=== PATIENT | male | born 1950 | race Caucasian/White ===

== ENCOUNTER 2024-10-10 14:43 | Emergency (ER) | payer MEDICARE, OTHER ==
[2024-10-10 14:46] VITALS: BP 161/78; PULSE 81
[2024-10-10 15:13] LABS: BASOPHILS ABSOLUTE AUTO 0.03 10^3/uL (0.00-0.50); BASOPHILS PERCENT AUTO 0.3 % (0-1); EOSINOPHILS ABSOLUTE AUTO 0.01 10^3/uL (0.00-1.50); EOSINOPHILS PERCENT AUTO 0.1 % (0-6); HEMATOCRIT 40.8 % (42.0-52.0); HEMOGLOBIN 12.5 g/dL (14.0-18.0); IMMATURE GRAN ABSOLUTE AUTO 0.07 10^3/uL (0.00-0.49); IMMATURE GRAN PERCENT AUTO 0.8 % (0.0-4.9); LYMPHOCYTES ABSOLUTE AUTO 0.52 10^3/uL (0.60-5.00); LYMPHOCYTES PERCENT AUTO 5.8 % (24-44); MEAN CORPUSCULAR HEMOGLOBIN 29.6 pg (27.0-32.0); MEAN CORPUSCULAR HGB CONC 30.6 g/dL (32.0-36.0); MEAN CORPUSCULAR VOLUME 96.5 fL (83.0-97.0); MONOCYTES ABSOLUTE AUTO 0.62 10^3/uL (0.00-1.50); NEUTROPHILS ABSOLUTE AUTO 7.65 x10^3/uL (1.80-8.00); PLATELET COUNT,PLT 242 10^3/uL (150-400); RED BLOOD CELL COUNT 4.23 x10^6/uL (4.50-6.00); WHITE BLOOD CELL COUNT,WBC 8.9 10^3/uL (4.0-11.0)
[2024-10-10 15:34] LABS: ALBUMIN 3.5 g/dL (3.4-5.0); BILIRUBIN TOTAL 0.6 mg/dL (0.0-1.0); C-REACTIVE PROTEIN 6.15 mg/dL (<=0.50); CALCIUM 9.7 mg/dL (8.4-10.1); CREATININE 1.1 mg/dL (0.7-1.3); EST CRCL DRUG DOSING (CG) 57.13 mL/min; MAGNESIUM 1.9 mg/dL (1.8-2.4); POTASSIUM,K 4.8 mEq/L (3.5-5.0); PROTEIN TOTAL,TP 7.4 g/dL (6.4-8.2)
[2024-10-10 16:29] LABS: INR 1.23 (0.92-1.18); PROTHROMBIN TIME 12.8 SEC (9.3-11.3); PTT,PARTIAL THROMBOPLSTIN TIME 26.1 SEC (20.0-30.0)
[2024-10-10] MEDS: Furosemide 40 MG/4 ML VIAL IVPUSH ONE (16:38)
[2024-10-10] MEDS: Heparin Sodium 5,000 Units/ML Vial IVPUSH ONE (17:12)
[2024-10-10] MEDS: Heparin Sodium/0.45% NaCl 25,000 UNITS/250 ML BAG IV SCH (17:19)
[2024-10-10] MEDS: LORazepam 2 MG/ML SDV IVPUSH ONE ×2 (17:30→17:33)
[2024-10-10] MEDS: Heparin Sodium 5,000 Units/ML Vial ONE (17:31)
== END 2024-10-10 17:33 ==
LOC: CC.ED 14:43
DX: I21.4 Non-ST elevation (NSTEMI) myocardial infarction (principal); I11.0 Hypertensive heart disease with heart failure; I50.9 Heart failure, unspecified; J44.9 Chronic obstructive pulmonary disease, unspecified; K21.9 Gastro-esophageal reflux disease without esophagitis; E78.00 Pure hypercholesterolemia, unspecified; E66.9 Obesity, unspecified; E11.9 Type 2 diabetes mellitus without complications; F17.200 Nicotine dependence, unspecified, uncomplicated; Z79.82 Long term (current) use of aspirin; Z79.84 Long term (current) use of oral hypoglycemic drugs; Z79.899 Other long term (current) drug therapy; Z68.27 Body mass index [BMI] 27.0-27.9, adult
CPT/HCPCS: 36415; 70450; 71045; 73630-RT; 80053; 83605; 83735; 83880; 84484; 85025; 85610; 85730; 86140; 87040; 93005; 96372; 96374; 96375; 99285-25; J1644; J1940; J2060

== ENCOUNTER 2024-10-27 20:50 | Inpatient (IN) | payer OTHER ==
[2024-10-27] MEDS ORDERED: Sodium Chloride 0.9% 10 ML Syringe FLUSH PRN (21:00)
[2024-10-27 21:24] LABS: BASOPHILS ABSOLUTE AUTO 0.04 10^3/uL (0.00-0.50); BASOPHILS PERCENT AUTO 0.4 % (0-1); EOSINOPHILS ABSOLUTE AUTO 0.16 10^3/uL (0.00-1.50); EOSINOPHILS PERCENT AUTO 1.5 % (0-6); HEMOGLOBIN 12.5 g/dL (14.0-18.0); IMMATURE GRAN ABSOLUTE AUTO 0.07 10^3/uL (0.00-0.49); IMMATURE GRAN PERCENT AUTO 0.7 % (0.0-4.9); LYMPHOCYTES ABSOLUTE AUTO 0.76 10^3/uL (0.60-5.00); LYMPHOCYTES PERCENT AUTO 7.1 % (24-44); MEAN CORPUSCULAR HEMOGLOBIN 30.1 pg (27.0-32.0); MEAN CORPUSCULAR HGB CONC 30.5 g/dL (32.0-36.0); MEAN CORPUSCULAR VOLUME 98.8 fL (83.0-97.0); MONOCYTES ABSOLUTE AUTO 0.96 10^3/uL (0.00-1.50); NEUTROPHILS PERCENT AUTO 81.3 % (41-71); PLATELET COUNT,PLT 201 10^3/uL (150-400); RED BLOOD CELL COUNT 4.15 x10^6/uL (4.50-6.00); WHITE BLOOD CELL COUNT,WBC 10.7 10^3/uL (4.0-11.0)
[2024-10-27 21:39] LABS: INR 1.05 (0.92-1.18); PROTHROMBIN TIME 10.9 SEC (9.3-11.3)
[2024-10-27 21:44] LABS: ALBUMIN 3.5 g/dL (3.4-5.0); BILIRUBIN TOTAL 0.4 mg/dL (0.0-1.0); C-REACTIVE PROTEIN 2.07 mg/dL (<=0.50); CALCIUM 9.5 mg/dL (8.4-10.1); CREATININE 0.7 mg/dL (0.7-1.3); EST CRCL DRUG DOSING (CG) 89.78 mL/min; MAGNESIUM 1.8 mg/dL (1.8-2.4); POTASSIUM,K 4.9 mEq/L (3.5-5.0); PROTEIN TOTAL,TP 7.2 g/dL (6.4-8.2)
[2024-10-27] MEDS: Morphine 2 MG/ML SYRINGE IVPUSH ONE (21:45)
[2024-10-27] MEDS: Albuterol/Ipratropium 3.0-0.5 MG/3 ML Neb Soln NEB ONE (21:56)
[2024-10-27] MEDS: methylPREDNISolone Sodium Succinate 125 MG/2 ML SDV IVPUSH STA (22:40)
[2024-10-27] MEDS ORDERED: Temazepam 15 MG Cap PO PRN (22:59)
[2024-10-27] MEDS: Apixaban 5 MG Tab PO SCH (23:37)
[2024-10-27] MEDS ORDERED: Ondansetron 4 MG/2 ML SDV IV PRN (23:38)
[2024-10-27] MEDS ORDERED: Albuterol 0.083% 2.5 MG/3 ML Neb Soln NEB PRN (23:38)
[2024-10-27] MEDS ORDERED: Ondansetron 4 MG Tab.DIS PO PRN (23:38)
[2024-10-28] MEDS: Levofloxacin/Dextrose 5%-Water 750 MG in Premix Bag 1 BAG IV SCH (00:42)
[2024-10-28] MEDS: LORazepam 2 MG/ML SDV IVPUSH ONE (00:44)
[2024-10-28] MEDS: Acetaminophen 325 MG Tab PO PRN (03:59)
[2024-10-28] MEDS ORDERED: LORazepam 2 MG/ML SDV IVPUSH PRN (04:59)
[2024-10-28] MEDS: LORazepam 0.5 MG Tab PO PRN (05:32)
[2024-10-28] MEDS: Pantoprazole 40 MG Tab.CR PO SCH (06:26)
[2024-10-28] MEDS ORDERED: Apixaban 5 MG Tab PO SCH (08:00)
[2024-10-28 08:29] LABS: BASOPHILS ABSOLUTE AUTO 0.01 10^3/uL (0.00-0.50); BASOPHILS PERCENT AUTO 0.1 % (0-1); HEMATOCRIT 40.9 % (42.0-52.0); HEMOGLOBIN 12.6 g/dL (14.0-18.0); IMMATURE GRAN ABSOLUTE AUTO 0.03 10^3/uL (0.00-0.49); IMMATURE GRAN PERCENT AUTO 0.4 % (0.0-4.9); LYMPHOCYTES ABSOLUTE AUTO 0.21 10^3/uL (0.60-5.00); MEAN CORPUSCULAR HEMOGLOBIN 29.5 pg (27.0-32.0); MEAN CORPUSCULAR HGB CONC 30.8 g/dL (32.0-36.0); MEAN CORPUSCULAR VOLUME 95.8 fL (83.0-97.0); MONOCYTES ABSOLUTE AUTO 0.04 10^3/uL (0.00-1.50); MONOCYTES PERCENT AUTO 0.6 % (0-10); NEUTROPHILS ABSOLUTE AUTO 6.62 x10^3/uL (1.80-8.00); NEUTROPHILS PERCENT AUTO 95.9 % (41-71); PLATELET COUNT,PLT 203 10^3/uL (150-400); RED BLOOD CELL COUNT 4.27 x10^6/uL (4.50-6.00); WHITE BLOOD CELL COUNT,WBC 6.9 10^3/uL (4.0-11.0)
[2024-10-28] MEDS: Metoprolol Succinate 100 MG Tab.ER PO SCH (08:32)
[2024-10-28] MEDS: Ezetimibe 10 MG Tab PO SCH (08:33)
[2024-10-28] MEDS: Losartan 25 MG Tab PO SCH (08:33)
[2024-10-28] MEDS: Aspirin 81 MG Tab.EC PO SCH (08:34)
[2024-10-28] MEDS: Atenolol 50 MG Tab PO SCH (08:34)
[2024-10-28] MEDS: Gabapentin 300 MG Cap PO SCH ×2 (08:34→19:19)
[2024-10-28] MEDS: Beta-Carotene (Vitamin A) w/Vitamin C & E plus Minerals Tab PO SCH (08:34)
[2024-10-28] MEDS: metFORMIN 500 MG Tab PO SCH (08:34)
[2024-10-28] MEDS: Clopidogrel 75 MG Tab PO SCH (08:34)
[2024-10-28] MEDS: Empagliflozin 25 MG Tab PO SCH (08:34)
[2024-10-28] MEDS: Isosorbide Mononitrate 30 MG Tab.ER PO SCH (08:34)
[2024-10-28] MEDS: Vitamin B Complex Cap PO SCH (08:34)
[2024-10-28] MEDS: Furosemide 40 MG Tab PO SCH (08:35)
[2024-10-28] MEDS: Lisinopril 5 MG Tab PO SCH (08:35)
[2024-10-28] MEDS: Nicotine 21 MG/24 Hr Patch TRDERM SCH (08:38)
[2024-10-28] MEDS: methylPREDNISolone Sodium Succinate 125 MG/2 ML SDV IVPUSH SCH (08:38)
[2024-10-28] MEDS: Tiotropium Bromide 4 GM Inhalation Spray (2.5mcg/1 dose; 10 doses) INH SCH (08:39)
[2024-10-28] MEDS: Albuterol/Ipratropium 3.0-0.5 MG/3 ML Neb Soln NEB SCH (08:39)
[2024-10-28] MEDS: Formoterol/Mometasone 200-5 MCG 8.8 GM Inhaler IH SCH (08:39)
[2024-10-28 08:46] LABS: ALBUMIN 3.5 g/dL (3.4-5.0); BILIRUBIN TOTAL 0.5 mg/dL (0.0-1.0); C-REACTIVE PROTEIN 1.82 mg/dL (<=0.50); CALCIUM 9.5 mg/dL (8.4-10.1); CREATININE 0.8 mg/dL (0.7-1.3); EST CRCL DRUG DOSING (CG) 78.56 mL/min; POTASSIUM,K 4.6 mEq/L (3.5-5.0); PROTEIN TOTAL,TP 7.3 g/dL (6.4-8.2)
[2024-10-28] MEDS: Morphine 2 MG/ML SYRINGE IVPUSH PRN (11:56)
[2024-10-28] MEDS: ALOGLIPTIN 25 MG PO SCH (11:57)
[2024-10-28] MEDS: Temazepam 15 MG Cap PO SCH (19:19)
[2024-10-29] MEDS: Sodium Chloride 0.9% 500 ML IV SCH ×2 (04:10→16:32)
[2024-10-29 06:37] LABS: APPEARANCE,URINE CLEAR (CLEAR); BILIRUBIN,URINE NEGATIVE (NEGATIVE); COLOR,URINE YELLOW (YELLOW); GLUCOSE,URINE 500 mg/dL (NEGATIVE); KETONES,URINE TRACE mg/dL (NEGATIVE); LEUKOCYTE ESTERASE,URINE NEGATIVE (NEGATIVE); NITRITE,URINE NEGATIVE (NEGATIVE); OCCULT BLOOD,URINE NEGATIVE (NEGATIVE); PH,URINE 5.5 (4.5-8.0); PROTEIN,URINE NEGATIVE (NEGATIVE); UROBILINOGEN,URINE 0.2 EU/dL (0.2-1.0)
[2024-10-29 08:00] LABS: BASOPHILS ABSOLUTE AUTO 0.01 10^3/uL (0.00-0.50); BASOPHILS PERCENT AUTO 0.1 % (0-1); EOSINOPHILS ABSOLUTE AUTO 0.01 10^3/uL (0.00-1.50); EOSINOPHILS PERCENT AUTO 0.1 % (0-6); HEMATOCRIT 35.9 % (42.0-52.0); HEMOGLOBIN 11.2 g/dL (14.0-18.0); IMMATURE GRAN ABSOLUTE AUTO 0.05 10^3/uL (0.00-0.49); IMMATURE GRAN PERCENT AUTO 0.5 % (0.0-4.9); LYMPHOCYTES ABSOLUTE AUTO 0.92 10^3/uL (0.60-5.00); MEAN CORPUSCULAR HEMOGLOBIN 30.1 pg (27.0-32.0); MEAN CORPUSCULAR HGB CONC 31.2 g/dL (32.0-36.0); MEAN CORPUSCULAR VOLUME 96.5 fL (83.0-97.0); MONOCYTES ABSOLUTE AUTO 1.25 10^3/uL (0.00-1.50); MONOCYTES PERCENT AUTO 12.2 % (0-10); NEUTROPHILS ABSOLUTE AUTO 7.99 x10^3/uL (1.80-8.00); NEUTROPHILS PERCENT AUTO 78.1 % (41-71); PLATELET COUNT,PLT 220 10^3/uL (150-400); RED BLOOD CELL COUNT 3.72 x10^6/uL (4.50-6.00); WHITE BLOOD CELL COUNT,WBC 10.2 10^3/uL (4.0-11.0)
[2024-10-29 08:17] LABS: BILIRUBIN TOTAL 0.3 mg/dL (0.0-1.0); C-REACTIVE PROTEIN 0.89 mg/dL (<=0.50); CALCIUM 8.6 mg/dL (8.4-10.1); EST CRCL DRUG DOSING (CG) 31.42 mL/min; POTASSIUM,K 3.8 mEq/L (3.5-5.0); PROTEIN TOTAL,TP 6.3 g/dL (6.4-8.2)
[2024-10-29] MEDS: Saxagliptin 2.5 MG Tab PO SCH (09:10)
[2024-10-29] MEDS: DULoxetine 20 MG Cap PO SCH (19:26)
[2024-10-29] MEDS: Budesonide 0.5 MG/2 ML Neb Susp NEB SCH (19:26)
[2024-10-29] MEDS: Rosuvastatin 10 MG Tab PO SCH (19:27)
[2024-10-30 08:09] LABS: BASOPHILS ABSOLUTE AUTO 0.01 10^3/uL (0.00-0.50); BASOPHILS PERCENT AUTO 0.1 % (0-1); EOSINOPHILS ABSOLUTE AUTO 0.02 10^3/uL (0.00-1.50); EOSINOPHILS PERCENT AUTO 0.2 % (0-6); HEMATOCRIT 36.6 % (42.0-52.0); HEMOGLOBIN 11.2 g/dL (14.0-18.0); IMMATURE GRAN ABSOLUTE AUTO 0.02 10^3/uL (0.00-0.49); IMMATURE GRAN PERCENT AUTO 0.2 % (0.0-4.9); LYMPHOCYTES ABSOLUTE AUTO 1.13 10^3/uL (0.60-5.00); LYMPHOCYTES PERCENT AUTO 11.9 % (24-44); MEAN CORPUSCULAR HEMOGLOBIN 29.9 pg (27.0-32.0); MEAN CORPUSCULAR HGB CONC 30.6 g/dL (32.0-36.0); MEAN CORPUSCULAR VOLUME 97.6 fL (83.0-97.0); MONOCYTES PERCENT AUTO 10.6 % (0-10); NEUTROPHILS ABSOLUTE AUTO 7.28 x10^3/uL (1.80-8.00); PLATELET COUNT,PLT 206 10^3/uL (150-400); RED BLOOD CELL COUNT 3.75 x10^6/uL (4.50-6.00); WHITE BLOOD CELL COUNT,WBC 9.5 10^3/uL (4.0-11.0)
[2024-10-30] MEDS: Metoprolol Succinate 100 MG Tab.ER PO SCH (08:13)
[2024-10-30] MEDS: Potassium Chloride 20 MEQ Tab.ER PO SCH (08:13)
[2024-10-30 08:25] LABS: ALANINE AMINOTRANSFERASE,ALT 11 U/L (12-78); ALBUMIN 2.9 g/dL (3.4-5.0); ALKALINE PHOSPHATASE 48 U/L (46-116); ASPARTATE AMNIOTRANSFERASE,AST 10 U/L (15-37); BILIRUBIN TOTAL 0.2 mg/dL (0.0-1.0); BLOOD UREA NITROGEN,BUN 47 mg/dL (7-18); CALCIUM 9.2 mg/dL (8.4-10.1); CHLORIDE,CL 101 mEq/L (98-106); CREATININE 1.5 mg/dL (0.7-1.3); GLUCOSE RANDOM 140 mg/dL (75-99); POTASSIUM,K 5.1 mEq/L (3.5-5.0); PROTEIN TOTAL,TP 6.1 g/dL (6.4-8.2); SODIUM,NA 145 mEq/L (136-145)
[2024-10-30] MEDS: Tiotropium Bromide 4 GM Inhalation Spray (2.5mcg/1 dose; 10 doses) INH SCH (08:25)
[2024-10-30 08:53] LABS: C-REACTIVE PROTEIN < 0.50 mg/dL (<=0.50); CARBON DIOXIDE,CO2 44 mmol/L (21-32); ESTIMATED GFR 48 mL/min (>=60)
[2024-10-30 13:16] VITALS: PULSE 73
[2024-10-30] MEDS: Levofloxacin/Dextrose 5%-Water 750 MG in Premix Bag 1 BAG IV SCH (13:19)
[2024-10-30] MEDS: Gabapentin 300 MG Cap PO ONE (15:11)
[2024-10-30 15:40] VITALS: BP 116/45
[2024-10-30] MEDS ORDERED: metFORMIN 500 MG Tab PO SCH (17:30)
[2024-10-30] MEDS ORDERED: Levofloxacin/Dextrose 5%-Water 750 MG in Premix Bag 1 BAG IV SCH (20:00)
== END 2024-10-30 15:30 | disposition home health service (06) | DRG 193 ==
LOC: CC.ED 20:50 → CC.MS 22:45
PROVIDERS: ADMIT Nurse Practitioner Family; ATTEND Nurse Practitioner Family
DX: J18.9 Pneumonia, unspecified organism (principal); I21.4 Non-ST elevation (NSTEMI) myocardial infarction; R41.0 Disorientation, unspecified; J44.1 Chronic obstructive pulmonary disease with (acute) exacerbation; N17.9 Acute kidney failure, unspecified; J44.0 Chronic obstructive pulmonary disease with (acute) lower respiratory infection; Z66 Do not resuscitate; I50.9 Heart failure, unspecified; E11.42 Type 2 diabetes mellitus with diabetic polyneuropathy; H91.90 Unspecified hearing loss, unspecified ear; H54.7 Unspecified visual loss; E78.00 Pure hypercholesterolemia, unspecified; I11.0 Hypertensive heart disease with heart failure; K21.9 Gastro-esophageal reflux disease without esophagitis; E11.40 Type 2 diabetes mellitus with diabetic neuropathy, unspecified; E66.9 Obesity, unspecified; I95.9 Hypotension, unspecified; Z95.5 Presence of coronary angioplasty implant and graft; Z79.01 Long term (current) use of anticoagulants; Z79.02 Long term (current) use of antithrombotics/antiplatelets; Z79.899 Other long term (current) drug therapy; Z79.51 Long term (current) use of inhaled steroids; Z79.84 Long term (current) use of oral hypoglycemic drugs; Z79.52 Long term (current) use of systemic steroids; Z79.82 Long term (current) use of aspirin; I25.2 Old myocardial infarction; Z68.26 Body mass index [BMI] 26.0-26.9, adult
CPT/HCPCS: 36415; 71045; 80053; 81003; 83690; 83735; 83880; 84132; 84484; 85025; 85610; 85730; 86140; 93005; 93010; 94640; 96374; 97110-GP; 97161-GP; 99223; 99232; 99233; 99239; 99285-25; A9270-GY; J1956; J2060; J2270; J2919; J3490; J7040

== ENCOUNTER 2024-11-12 12:40 | Emergency (ER) | payer OTHER ==
[2024-11-12 13:09] LABS: BASOPHILS ABSOLUTE AUTO 0.05 10^3/uL (0.00-0.50); BASOPHILS PERCENT AUTO 0.4 % (0-1); EOSINOPHILS ABSOLUTE AUTO 0.16 10^3/uL (0.00-1.50); EOSINOPHILS PERCENT AUTO 1.1 % (0-6); HEMATOCRIT 38.6 % (42.0-52.0); HEMOGLOBIN 11.8 g/dL (14.0-18.0); IMMATURE GRAN ABSOLUTE AUTO 0.05 10^3/uL (0.00-0.49); IMMATURE GRAN PERCENT AUTO 0.4 % (0.0-4.9); LYMPHOCYTES ABSOLUTE AUTO 1.15 10^3/uL (0.60-5.00); LYMPHOCYTES PERCENT AUTO 8.2 % (24-44); MEAN CORPUSCULAR HEMOGLOBIN 29.4 pg (27.0-32.0); MEAN CORPUSCULAR HGB CONC 30.6 g/dL (32.0-36.0); MEAN CORPUSCULAR VOLUME 96.3 fL (83.0-97.0); MONOCYTES ABSOLUTE AUTO 0.99 10^3/uL (0.00-1.50); MONOCYTES PERCENT AUTO 7.1 % (0-10); NEUTROPHILS ABSOLUTE AUTO 11.61 x10^3/uL (1.80-8.00); NEUTROPHILS PERCENT AUTO 82.8 % (41-71); PLATELET COUNT,PLT 235 10^3/uL (150-400); RED BLOOD CELL COUNT 4.01 x10^6/uL (4.50-6.00)
[2024-11-12 13:25] LABS: LACTIC ACID 3.9 mmol/L (0.4-2.0)
[2024-11-12 13:30] LABS: ALANINE AMINOTRANSFERASE,ALT 17 U/L (12-78); ALBUMIN 3.7 g/dL (3.4-5.0); ALKALINE PHOSPHATASE 58 U/L (46-116); ASPARTATE AMNIOTRANSFERASE,AST 13 U/L (15-37); BILIRUBIN TOTAL 0.5 mg/dL (0.0-1.0); BLOOD UREA NITROGEN,BUN 24 mg/dL (7-18); CALCIUM 9.5 mg/dL (8.4-10.1); CHLORIDE,CL 96 mEq/L (98-106); CREATININE 1.2 mg/dL (0.7-1.3); GLUCOSE RANDOM 171 mg/dL (75-99); POTASSIUM,K 4.7 mEq/L (3.5-5.0); PRO B-TYPE NATRIUR PEPT,BNPPRO 3893 pg/mL (0-1000); PROTEIN TOTAL,TP 6.7 g/dL (6.4-8.2); SODIUM,NA 145 mEq/L (136-145)
[2024-11-12 13:32] LABS: APPEARANCE,URINE CLEAR (CLEAR); BILIRUBIN,URINE NEGATIVE (NEGATIVE); COLOR,URINE YELLOW (YELLOW); GLUCOSE,URINE 500 mg/dL (NEGATIVE); KETONES,URINE NEGATIVE (NEGATIVE); LEUKOCYTE ESTERASE,URINE NEGATIVE (NEGATIVE); NITRITE,URINE NEGATIVE (NEGATIVE); OCCULT BLOOD,URINE NEGATIVE (NEGATIVE); PROTEIN,URINE NEGATIVE (NEGATIVE); UROBILINOGEN,URINE 0.2 EU/dL (0.2-1.0)
[2024-11-12 13:37] LABS: CARBON DIOXIDE,CO2 47 mmol/L (21-32); ESTIMATED GFR 63 mL/min (>=60)
[2024-11-12 13:38] LABS: C-REACTIVE PROTEIN < 0.50 mg/dL (<=0.50)
[2024-11-12] MEDS: Sodium Chloride 0.9% 500 ML IV SCH (13:42)
[2024-11-12 14:09] VITALS: BP 81/46; PULSE 78
[2024-11-12] MEDS: Heparin Sodium 5,000 Units/ML Vial IVPUSH ONE (15:56)
[2024-11-12] MEDS: Heparin Sodium/0.45% NaCl 25,000 UNITS/250 ML BAG IV SCH (15:58)
== END 2024-11-12 18:49 ==
LOC: CC.ED 12:40
DX: I21.4 Non-ST elevation (NSTEMI) myocardial infarction (principal); I95.9 Hypotension, unspecified; R55 Syncope and collapse; I11.0 Hypertensive heart disease with heart failure; I50.9 Heart failure, unspecified; I25.2 Old myocardial infarction; E11.40 Type 2 diabetes mellitus with diabetic neuropathy, unspecified; E66.9 Obesity, unspecified; E78.00 Pure hypercholesterolemia, unspecified; J44.9 Chronic obstructive pulmonary disease, unspecified; K21.9 Gastro-esophageal reflux disease without esophagitis; Z79.82 Long term (current) use of aspirin; Z79.899 Other long term (current) drug therapy; Z79.84 Long term (current) use of oral hypoglycemic drugs; Z79.01 Long term (current) use of anticoagulants
CPT/HCPCS: 36415; 70450; 71045; 80053; 81003; 83605; 83880; 84484; 85025; 85730; 86140; 93005; 93010; 96361; 96365; 96366; 96376; 99284; 99285-25; J1644; J7040

== ENCOUNTER 2024-12-08 07:20 | Emergency (ER) | payer OTHER ==
[2024-12-08] MEDS ORDERED: Morphine 2 MG/ML SYRINGE IVPUSH STA (07:30)
[2024-12-08 07:34] LABS: BASOPHILS ABSOLUTE AUTO 0.03 10^3/uL (0.00-0.50); BASOPHILS PERCENT AUTO 0.3 % (0-1); EOSINOPHILS ABSOLUTE AUTO 0.18 10^3/uL (0.00-1.50); EOSINOPHILS PERCENT AUTO 2.1 % (0-6); HEMATOCRIT 36.4 % (42.0-52.0); HEMOGLOBIN 10.8 g/dL (14.0-18.0); IMMATURE GRAN ABSOLUTE AUTO 0.05 10^3/uL (0.00-0.49); IMMATURE GRAN PERCENT AUTO 0.6 % (0.0-4.9); LYMPHOCYTES ABSOLUTE AUTO 0.55 10^3/uL (0.60-5.00); LYMPHOCYTES PERCENT AUTO 6.3 % (24-44); MEAN CORPUSCULAR HEMOGLOBIN 29.4 pg (27.0-32.0); MEAN CORPUSCULAR HGB CONC 29.7 g/dL (32.0-36.0); MEAN CORPUSCULAR VOLUME 99.2 fL (83.0-97.0); MONOCYTES ABSOLUTE AUTO 1.11 10^3/uL (0.00-1.50); MONOCYTES PERCENT AUTO 12.7 % (0-10); NEUTROPHILS ABSOLUTE AUTO 6.83 x10^3/uL (1.80-8.00); PLATELET COUNT,PLT 159 10^3/uL (150-400); RED BLOOD CELL COUNT 3.67 x10^6/uL (4.50-6.00); WHITE BLOOD CELL COUNT,WBC 8.8 10^3/uL (4.0-11.0)
[2024-12-08 07:37] VITALS: PULSE 94
[2024-12-08 07:50] LABS: ALBUMIN 3.4 g/dL (3.4-5.0); BILIRUBIN TOTAL 0.4 mg/dL (0.0-1.0); C-REACTIVE PROTEIN 3.35 mg/dL (<=0.50); CALCIUM 9.1 mg/dL (8.4-10.1); CREATININE 0.8 mg/dL (0.7-1.3); EST CRCL DRUG DOSING (CG) 78.56 mL/min; MAGNESIUM 1.6 mg/dL (1.8-2.4); PROTEIN TOTAL,TP 6.4 g/dL (6.4-8.2)
[2024-12-08] MEDS: methylPREDNISolone Sodium Succinate 125 MG/2 ML SDV IVPUSH STA (08:43)
[2024-12-08 11:36] VITALS: BP 136/47
== END 2024-12-08 11:05 | disposition home or self-care (01) ==
LOC: CC.ED 07:20
DX: J98.4 Other disorders of lung (principal); E78.00 Pure hypercholesterolemia, unspecified; I11.0 Hypertensive heart disease with heart failure; I50.9 Heart failure, unspecified; K21.9 Gastro-esophageal reflux disease without esophagitis; E11.9 Type 2 diabetes mellitus without complications; E66.9 Obesity, unspecified; Z79.899 Other long term (current) drug therapy; Z79.82 Long term (current) use of aspirin; Z68.26 Body mass index [BMI] 26.0-26.9, adult
CPT/HCPCS: 36415; 70450; 71045; 80053; 83690; 83735; 84484; 85025; 86140; 93005; 93010; 96374; 99284; 99285-25; J2919

== ENCOUNTER 2024-12-20 16:28 | Emergency (ER) | payer OTHER ==
[2024-12-20 16:54] LABS: BASOPHILS ABSOLUTE AUTO 0.04 10^3/uL (0.00-0.50); BASOPHILS PERCENT AUTO 0.3 % (0-1); EOSINOPHILS PERCENT AUTO 0.8 % (0-6); HEMATOCRIT 35.3 % (42.0-52.0); HEMOGLOBIN 10.7 g/dL (14.0-18.0); IMMATURE GRAN ABSOLUTE AUTO 0.11 10^3/uL (0.00-0.49); IMMATURE GRAN PERCENT AUTO 0.9 % (0.0-4.9); LYMPHOCYTES ABSOLUTE AUTO 0.68 10^3/uL (0.60-5.00); LYMPHOCYTES PERCENT AUTO 5.6 % (24-44); MEAN CORPUSCULAR HEMOGLOBIN 29.7 pg (27.0-32.0); MEAN CORPUSCULAR HGB CONC 30.3 g/dL (32.0-36.0); MEAN CORPUSCULAR VOLUME 98.1 fL (83.0-97.0); MONOCYTES ABSOLUTE AUTO 1.25 10^3/uL (0.00-1.50); MONOCYTES PERCENT AUTO 10.2 % (0-10); NEUTROPHILS ABSOLUTE AUTO 10.02 x10^3/uL (1.80-8.00); NEUTROPHILS PERCENT AUTO 82.2 % (41-71); PLATELET COUNT,PLT 175 10^3/uL (150-400); WHITE BLOOD CELL COUNT,WBC 12.2 10^3/uL (4.0-11.0)
[2024-12-20 17:13] LABS: ALANINE AMINOTRANSFERASE,ALT 13 U/L (12-78); ALBUMIN 3.4 g/dL (3.4-5.0); ALKALINE PHOSPHATASE 48 U/L (46-116); ASPARTATE AMNIOTRANSFERASE,AST 12 U/L (15-37); BILIRUBIN TOTAL 0.4 mg/dL (0.0-1.0); BLOOD UREA NITROGEN,BUN 13 mg/dL (7-18); C-REACTIVE PROTEIN 1.65 mg/dL (<=0.50); CALCIUM 9.2 mg/dL (8.4-10.1); CHLORIDE,CL 103 mEq/L (98-106); CREATININE 0.9 mg/dL (0.7-1.3); GLUCOSE RANDOM 119 mg/dL (75-99); POTASSIUM,K 3.7 mEq/L (3.5-5.0); PRO B-TYPE NATRIUR PEPT,BNPPRO 1699 pg/mL (0-1000); PROTEIN TOTAL,TP 6.3 g/dL (6.4-8.2); SODIUM,NA 149 mEq/L (136-145)
[2024-12-20 17:17] LABS: CARBON DIOXIDE,CO2 49 mmol/L (21-32); ESTIMATED GFR 89 mL/min (>=60)
[2024-12-20 21:48] VITALS: BP 107/60; PULSE 78
== END 2024-12-20 23:27 | disposition home or self-care (01) ==
LOC: CC.ED 16:28
DX: S82.65XA Nondisplaced fracture of lateral malleolus of left fibula, initial encounter for closed fracture (principal); F41.9 Anxiety disorder, unspecified; R79.89 Other specified abnormal findings of blood chemistry; I11.0 Hypertensive heart disease with heart failure; I50.9 Heart failure, unspecified; I25.2 Old myocardial infarction; E11.9 Type 2 diabetes mellitus without complications; E66.9 Obesity, unspecified; J44.9 Chronic obstructive pulmonary disease, unspecified; K21.9 Gastro-esophageal reflux disease without esophagitis; E78.00 Pure hypercholesterolemia, unspecified; F17.200 Nicotine dependence, unspecified, uncomplicated; Z79.82 Long term (current) use of aspirin; Z79.01 Long term (current) use of anticoagulants; Z79.899 Other long term (current) drug therapy; Z79.84 Long term (current) use of oral hypoglycemic drugs; Z79.02 Long term (current) use of antithrombotics/antiplatelets; W18.30XA Fall on same level, unspecified, initial encounter
CPT/HCPCS: 36415; 71046; 73562-LT; 73590-LT; 80053; 83880; 84484; 85025; 86140; 93005; 93010; 99284

== ENCOUNTER 2024-12-28 13:47 | Emergency (ER) | payer OTHER ==
[2024-12-28 14:17] LABS: BASOPHILS ABSOLUTE AUTO 0.06 10^3/uL (0.00-0.50); BASOPHILS PERCENT AUTO 0.8 % (0-1); EOSINOPHILS ABSOLUTE AUTO 0.08 10^3/uL (0.00-1.50); HEMATOCRIT 30.3 % (42.0-52.0); HEMOGLOBIN 9.2 g/dL (14.0-18.0); IMMATURE GRAN PERCENT AUTO 1.3 % (0.0-4.9); LYMPHOCYTES ABSOLUTE AUTO 0.44 10^3/uL (0.60-5.00); LYMPHOCYTES PERCENT AUTO 5.8 % (24-44); MEAN CORPUSCULAR HEMOGLOBIN 30.3 pg (27.0-32.0); MEAN CORPUSCULAR HGB CONC 30.4 g/dL (32.0-36.0); MEAN CORPUSCULAR VOLUME 99.7 fL (83.0-97.0); MONOCYTES ABSOLUTE AUTO 0.73 10^3/uL (0.00-1.50); MONOCYTES PERCENT AUTO 9.6 % (0-10); NEUTROPHILS ABSOLUTE AUTO 6.22 x10^3/uL (1.80-8.00); NEUTROPHILS PERCENT AUTO 81.5 % (41-71); PLATELET COUNT,PLT 165 10^3/uL (150-400); RED BLOOD CELL COUNT 3.04 x10^6/uL (4.50-6.00); WHITE BLOOD CELL COUNT,WBC 7.6 10^3/uL (4.0-11.0)
[2024-12-28 14:24] LABS: APPEARANCE,URINE CLEAR (CLEAR); BILIRUBIN,URINE NEGATIVE (NEGATIVE); COLOR,URINE YELLOW (YELLOW); GLUCOSE,URINE 500 mg/dL (NEGATIVE); KETONES,URINE NEGATIVE (NEGATIVE); LEUKOCYTE ESTERASE,URINE NEGATIVE (NEGATIVE); NITRITE,URINE NEGATIVE (NEGATIVE); OCCULT BLOOD,URINE TRACE-INTACT (NEGATIVE); PROTEIN,URINE NEGATIVE (NEGATIVE); UROBILINOGEN,URINE 0.2 EU/dL (0.2-1.0)
[2024-12-28 14:30] LABS: BACTERIA,URINE NOT SEEN /HPF (NOT SEEN); EPITHELIAL CELLS,URINE RARE /HPF (NOT SEEN); RBC,URINE 0-5 /HPF (0-5); WBC,URINE NOT SEEN /HPF (0-5)
[2024-12-28 14:31] LABS: MUCUS,URINE NOT SEEN /HPF (NOT SEEN)
[2024-12-28 14:32] LABS: BILIRUBIN TOTAL 0.4 mg/dL (0.0-1.0); C-REACTIVE PROTEIN 1.84 mg/dL (<=0.50); CALCIUM 9.4 mg/dL (8.4-10.1); CREATININE 0.9 mg/dL (0.7-1.3); EST CRCL DRUG DOSING (CG) 69.83 mL/min; POTASSIUM,K 3.1 mEq/L (3.5-5.0); PROTEIN TOTAL,TP 6.4 g/dL (6.4-8.2)
[2024-12-28] MEDS: Potassium Chloride 20 MEQ Tab.ER PO ONE (15:03)
[2024-12-28] MEDS: Albuterol/Ipratropium 3.0-0.5 MG/3 ML Neb Soln NEB ONE (15:20)
[2024-12-28 15:38] LABS: O2 DELIVERY DEVICE NASAL CANNULA
[2024-12-28 15:41] LABS: BASE EXCESS VENOUS 27.4; BICARBONATE,VENOUS 56.5; O2 SATURATION VENOUS 33.4; PCO2 VENOUS 85.4; PH,VENOUS 7.43 (7.36-7.41)
[2024-12-28 15:42] LABS: PO2 VENOUS 21.9
[2024-12-28] MEDS: Furosemide 40 MG/4 ML VIAL IVPUSH ONE (15:46)
[2024-12-28 17:03] VITALS: BP 107/47; PULSE 85
== END 2024-12-28 17:45 ==
LOC: CC.ED 13:47
DX: J44.1 Chronic obstructive pulmonary disease with (acute) exacerbation (principal); D53.9 Nutritional anemia, unspecified; R06.89 Other abnormalities of breathing; R41.0 Disorientation, unspecified; I11.0 Hypertensive heart disease with heart failure; I50.9 Heart failure, unspecified; I25.2 Old myocardial infarction; E78.00 Pure hypercholesterolemia, unspecified; J44.9 Chronic obstructive pulmonary disease, unspecified; K21.9 Gastro-esophageal reflux disease without esophagitis; E11.9 Type 2 diabetes mellitus without complications; Z79.899 Other long term (current) drug therapy; Z79.01 Long term (current) use of anticoagulants; Z79.51 Long term (current) use of inhaled steroids
CPT/HCPCS: 36415; 71046; 80053; 81001; 82803; 83735; 83880; 84484; 85025; 86140; 93005; 94640; 96374; 99285-25; A9270-GY; J1938

== ENCOUNTER 2025-04-16 20:47 | Observation (INO) | payer OTHER ==
[2025-04-16 21:04] LABS: BASOPHILS ABSOLUTE AUTO 0.01 10^3/uL (0.00-0.50); BASOPHILS PERCENT AUTO 0.1 % (0-1); EOSINOPHILS ABSOLUTE AUTO 0.03 10^3/uL (0.00-1.50); EOSINOPHILS PERCENT AUTO 0.3 % (0-6); IMMATURE GRAN ABSOLUTE AUTO 0.05 10^3/uL (0.00-0.49); IMMATURE GRAN PERCENT AUTO 0.5 % (0.0-4.9); LYMPHOCYTES ABSOLUTE AUTO 1.74 10^3/uL (0.60-5.00); LYMPHOCYTES PERCENT AUTO 17.3 % (24-44); MONOCYTES ABSOLUTE AUTO 0.96 10^3/uL (0.00-1.50); MONOCYTES PERCENT AUTO 9.5 % (0-10); NEUTROPHILS ABSOLUTE AUTO 7.29 x10^3/uL (1.80-8.00); NEUTROPHILS PERCENT AUTO 72.3 % (41-71); PLATELET COUNT,PLT 283 10^3/uL (150-400); RED BLOOD CELL COUNT 3.64 x10^6/uL (4.50-6.00); WHITE BLOOD CELL COUNT,WBC 10.1 10^3/uL (4.0-11.0)
[2025-04-16 21:25] LABS: ALANINE AMINOTRANSFERASE,ALT 18 U/L (12-78); ASPARTATE AMNIOTRANSFERASE,AST 13 U/L (15-37); BILIRUBIN TOTAL 0.4 mg/dL (0.0-1.0); BLOOD UREA NITROGEN,BUN 30 mg/dL (7-18); CARBON DIOXIDE,CO2 37 mmol/L (21-32); CHLORIDE,CL 100 mEq/L (98-106); CREATININE 1.0 mg/dL (0.7-1.3); EST CRCL DRUG DOSING (CG) 62.84 mL/min; GLUCOSE RANDOM 165 mg/dL (75-99); POTASSIUM,K 4.8 mEq/L (3.5-5.0); PRO B-TYPE NATRIUR PEPT,BNPPRO 404 pg/mL (0-1000); PROTEIN TOTAL,TP 6.0 g/dL (6.4-8.2); SODIUM,NA 142 mEq/L (136-145)
[2025-04-16 21:29] LABS: ESTIMATED GFR 78 mL/min (>=60)
[2025-04-16 21:35] LABS: INR 1.09 (0.92-1.18); PTT,PARTIAL THROMBOPLSTIN TIME 23.3 SEC (20.0-30.0)
[2025-04-17] MEDS ORDERED: Nitroglycerin 0.4 MG Tab.SL SL PRN (01:03)
[2025-04-17] MEDS ORDERED: Sodium Chloride 0.9% 10 ML Syringe FLUSH PRN (01:03)
[2025-04-17] MEDS ORDERED: Ondansetron 4 MG Tab.DIS PO PRN (01:03)
[2025-04-17] MEDS ORDERED: Ondansetron 4 MG/2 ML SDV IV PRN (01:03)
[2025-04-17 07:55] LABS: BASOPHILS ABSOLUTE AUTO 0.01 10^3/uL (0.00-0.50); BASOPHILS PERCENT AUTO 0.1 % (0-1); EOSINOPHILS ABSOLUTE AUTO 0.22 10^3/uL (0.00-1.50); EOSINOPHILS PERCENT AUTO 2.5 % (0-6); IMMATURE GRAN ABSOLUTE AUTO 0.05 10^3/uL (0.00-0.49); IMMATURE GRAN PERCENT AUTO 0.6 % (0.0-4.9); LYMPHOCYTES ABSOLUTE AUTO 2.60 10^3/uL (0.60-5.00); LYMPHOCYTES PERCENT AUTO 29.7 % (24-44); MONOCYTES ABSOLUTE AUTO 0.70 10^3/uL (0.00-1.50); MONOCYTES PERCENT AUTO 8.0 % (0-10); NEUTROPHILS ABSOLUTE AUTO 5.18 x10^3/uL (1.80-8.00); NEUTROPHILS PERCENT AUTO 59.1 % (41-71); PLATELET COUNT,PLT 304 10^3/uL (150-400); RED BLOOD CELL COUNT 3.62 x10^6/uL (4.50-6.00); WHITE BLOOD CELL COUNT,WBC 8.8 10^3/uL (4.0-11.0)
[2025-04-17] MEDS: Cyanocobalamin (Vitamin B12) 1,000 MCG Tab PO SCH (08:09)
[2025-04-17] MEDS: Cholecalciferol (Vitamin D3) 25 MCG Tab PO SCH (08:10)
[2025-04-17] MEDS: Ferrous Sulfate 324 MG Tab.EC PO SCH (08:11)
[2025-04-17] MEDS: Budesonide 0.5 MG/2 ML Neb Susp INH SCH (08:13)
[2025-04-17] MEDS: Metoprolol Succinate 100 MG Tab.ER PO SCH (08:15)
[2025-04-17 08:17] VITALS: BP 121/59; PULSE 68
[2025-04-17 08:34] LABS: ALANINE AMINOTRANSFERASE,ALT 18.0 U/L (12-78); ASPARTATE AMNIOTRANSFERASE,AST 10.0 U/L (15-37); BILIRUBIN TOTAL 0.3 mg/dL (0.0-1.0); BLOOD UREA NITROGEN,BUN 23.0 mg/dL (7-18); CARBON DIOXIDE,CO2 39.0 mmol/L (21-32); CHLORIDE,CL 103.0 mEq/L (98-106); CREATININE 0.8 mg/dL (0.7-1.3); EST CRCL DRUG DOSING (CG) 78.56 mL/min; GLUCOSE RANDOM 115.0 mg/dL (75-99); POTASSIUM,K 4.7 mEq/L (3.5-5.0); PROTEIN TOTAL,TP 5.7 g/dL (6.4-8.2); SODIUM,NA 144.0 mEq/L (136-145)
[2025-04-17 08:35] LABS: ESTIMATED GFR 92.0 mL/min (>=60)
== END 2025-04-17 11:15 | disposition home or self-care (01) ==
LOC: CC.ED 20:47 → CC.MS 22:03 → UNDOADMOB 04-17 00:55
PROVIDERS: ADMIT Physician Assistant Medical; ATTEND Physician Assistant Medical
DX: R55 Syncope and collapse (principal); E11.9 Type 2 diabetes mellitus without complications; E66.9 Obesity, unspecified; I11.0 Hypertensive heart disease with heart failure; I50.9 Heart failure, unspecified; F17.200 Nicotine dependence, unspecified, uncomplicated; Z68.30 Body mass index [BMI] 30.0-30.9, adult; Z79.01 Long term (current) use of anticoagulants; Z79.84 Long term (current) use of oral hypoglycemic drugs; Z79.899 Other long term (current) drug therapy
CPT/HCPCS: 36415; 71045; 80053; 83880; 84484; 85025; 85610; 85730; 86140; 93005; 94640; A9270; 93010; 99223; 99239; 99285